=== PATIENT | male | born 1980 | race Caucasian/White ===

== ENCOUNTER 2017-05-29 19:09 | Emergency (ER) | payer BC, OTHER ==
--- NOTE | 2017-05-29 19:14 | UC ---
HPI Febrile Illness - HPI Summary HPI Summary: 36 YEAR OLD MALE PRESENTS WITH FEVER, CHILLS, AND SEVERE NECK PAIN. I WILL SEND HIM TO THE ER TO RULE OUT MENINGITIS. - History of Current Complaint Chief Complaint: UCGeneralIllness Time Seen by Provider: 05/29/17 19:13 - Allergy/Home Medications Allergies/Adverse Reactions: Allergies Allergy/AdvReac Type Severity Reaction Status Date / Time Sulfa Antibiotics Allergy Hives Verified 05/29/17 19:17 Home Medications: Home Medications Acetaminophen [Eq Acetaminophen] 650 mg PO 05/29/17 [History] Ibuprofen [Advil] 400 mg PO 05/29/17 [History] PMH/Surg Hx/FS Hx/Imm Hx Previously Healthy: Yes Review of Systems Constitutional: Fever, Chills, Fatigue Skin: Negative Eyes: Negative ENT: Negative Respiratory: Negative Cardiovascular: Negative Gastrointestinal: Negative Genitourinary: Negative Motor: Negative Neurovascular: Negative Musculoskeletal: Other: - NECK PAIN Neurological: Negative Psychological: Negative All Other Systems Reviewed And Are Negative: Yes Physical Exam Triage Information Reviewed: Yes Eye Exam: Normal ENT Exam: Normal ENT: Positive: Pharyngeal erythema, Nasal drainage Dental Exam: Normal Neck: Positive: Tenderness @ Respiratory: Positive: Rhonchi, Wheezing Cardiovascular Exam: Normal Abdominal Exam: Normal Musculoskeletal Exam: Normal Neurological Exam: Normal Psychological Exam: Normal Skin Exam: Normal Course/Dx - Diagnoses Clinic Provider Diagnoses: FEVER. CHILLS. NECK PAIN Discharge - Discharge Plan Condition: Stable Disposition: AGAINST MEDICAL ADVICE Patient Education Materials: Fever in Adults (ED), Cold Symptoms (ED) Referrals: No Primary Care Phys,NOPCP [Primary Care Provider] -
[2017-05-29 19:17] VITALS: BP 132/69
== END 2017-05-29 19:24 | disposition left against medical advice (07) ==
LOC: UCEAST 19:09
DX: R50.9 Fever, unspecified (principal); M54.2 Cervicalgia
CPT/HCPCS: 99202; G0463

== ENCOUNTER 2017-05-29 19:45 | Emergency (ER) | payer BC, OTHER ==
[2017-05-29 21:24] LABS: Hematocrit 40 % (42-52); Hemoglobin 13.4 g/dl (14.0-18.0); Mean Corpuscular HGB Conc 34 g/dl (31-36); Mean Corpuscular Hemoglobin 30 pg (27-31); Mean Corpuscular Volume 90 fL (80-94); Mean Platelet Volume 7 um3 (7.4-10.4); Red Blood Count 4.42 10^6/ul (4.0-5.4); Red Cell Distribution Width 14 % (10.5-15); White Blood Count 4.9 10^3/ul (3.5-10.8)
[2017-05-29 21:27] LABS: Urine Bilirubin Negative (Negative); Urine Glucose Negative (Negative); Urine Nitrite Negative (Negative)
[2017-05-29 21:39] LABS: BUN/Creatinine Ratio 11.5 (8-20); Calcium 9.1 mg/dL (8.6-10.3); Globulin 3.4 g/dL (2-4); Total Bilirubin 1.5 mg/dL (0.2-1.0); Total Protein 7.4 g/dL (6.4-8.9)
--- NOTE | 2017-05-29 23:44 | ED ---
Abdiel Moncada Alok, scribed for Brandon Jesus MD on 05/29/17 at 2307 . HPI Febrile Illness - HPI Summary HPI Summary: 36M presents to the ED for a fever/chills since 8 days ago. Pt states that his maximum fever was 102.5 F three days ago. Pt has been taking ibuprofen/tylenol every 4 hours to manage his symptoms. Pt also notes chest tightness, neck tightness, and myalgia. PMHx includes h/o PNA 3 months ago lasting 2 weeks. - History of Current Complaint Chief Complaint: EDFever Time Seen by Provider: 05/29/17 23:00 Hx Obtained From: Patient Onset/Duration: Started Days Ago, Atraumatic, Still Present Timing: Constant Initial Severity: Moderate Current Severity: Moderate Pain Intensity: 5 Pain Scale Used: 0-10 Numeric Aggravating Factors: Nothing Alleviating Factors: Nothing Associated Signs and Symptoms: Chills, Myalgia, Stiff Neck, Other: - chest tightness - Allergy/Home Medications Allergies/Adverse Reactions: Allergies Allergy/AdvReac Type Severity Reaction Status Date / Time Sulfa Antibiotics Allergy Hives Verified 05/29/17 19:17 PMH/Surg Hx/FS Hx/Imm Hx Respiratory History: Reports: Hx Pneumonia Infectious Disease History: No Infectious Disease History: Denies: Traveled Outside the [place] in Last 30 Days - Family History Known Family History: Negative: Hypertension - Social History Occupation: Employed Full-time Lives: With Family Alcohol Use: Occasionally Substance Use Type: Reports: None Smoking Status (MU): Never Smoked Tobacco Review of Systems Positive: Fever, Chills Positive: Chest Pain Positive: Myalgia, Other - neck pain All Other Systems Reviewed And Are Negative: Yes Physical Exam Triage Information Reviewed: Yes Vital Signs On Initial Exam: Initial Vitals Temp Resp Pulse Ox 101.1 F 18 99 05/29/17 19:55 05/29/17 19:55 05/29/17 19:55 Vital Signs Reviewed: Yes Appearance: Positive: Well-Appearing, No Pain Distress, Thin Skin: Positive: Warm Head/Face: Positive: Normal Head/Face Inspection Eyes: Positive: LEDIA ENT: Positive: Hearing grossly normal, Pharynx normal Neck: Positive: Supple Respiratory/Lung Sounds: Positive: Clear to Auscultation, Breath Sounds Present Cardiovascular: Positive: RRR Abdomen Description: Positive: Nontender, Soft Bowel Sounds: Positive: Present Musculoskeletal: Positive: Strength/ROM Intact Neurological: Positive: Alert, Oriented to Person Place, Time Psychiatric: Positive: Affect/Mood Appropriate - Jennifer Coma Scale Coma Scale Total: 15 Diagnostics - Vital Signs Vital Signs Temp Pulse Resp BP Pulse Ox 05/29/17 22:50 99 F 05/29/17 21:47 100.9 F 18 122/74 99 05/29/17 19:57 101.1 F 73 16 127/76 100 05/29/17 19:55 101.1 F 18 99 - Laboratory Lab Results: Lab Results 05/29/17 05/29/17 05/29/17 Range/Units 21:14 21:14 21:14 WBC 4.9 (3.5-10.8) 10^3/ul RBC 4.42 (4.0-5.4) 10^6/ul Hgb 13.4 L (14.0-18.0) g/dl Hct 40 L (42-52) % MCV 90 (80-94) fL MCH 30 (27-31) pg MCHC 34 (31-36) g/dl RDW 14 (10.5-15) % Plt Count 265 (150-450) 10^3/ul MPV 7 L (7.4-10.4) um3 Neut % (Auto) 55.2 (38-83) % Lymph % (Auto) 22.6 L (25-47) % Mckinley % (Auto) 19.9 H (1-9) % Eos % (Auto) 0.8 (0-6) % Baso % (Auto) 1.5 (0-2) % Absolute Neuts (auto) 2.7 (1.5-7.7) 10^3/ul Absolute Lymphs (auto) 1.1 (1.0-4.8) 10^3/ul Absolute Monos (auto) 1.0 H (0-0.8) 10^3/ul Absolute Eos (auto) 0 (0-0.6) 10^3/ul Absolute Basos (auto) 0.1 (0-0.2) 10^3/ul Absolute Nucleated RBC 0 10^3/ul Nucleated RBC % 0 Sodium 132 L (133-145) mmol/L Potassium 4.0 (3.5-5.0) mmol/L Chloride 99 L (101-111) mmol/L Carbon Dioxide 28 (22-32) mmol/L Anion Gap 5 (2-11) mmol/L BUN 9 (6-24) mg/dL Creatinine 0.78 (0.67-1.17) mg/dL Est GFR ( Amer) 144.0 (>60) Est GFR (Non-Af Amer) 112.0 (>60) BUN/Creatinine Ratio 11.5 (8-20) Glucose 106 H (70-100) mg/dL Calcium 9.1 (8.6-10.3) mg/dL Total Bilirubin 1.50 H (0.2-1.0) mg/dL AST 36 (13-39) U/L ALT 35 (7-52) U/L Alkaline Phosphatase 66 (34-104) U/L Total Protein 7.4 (6.4-8.9) g/dL Albumin 4.0 (3.2-5.2) g/dL Globulin 3.4 (2-4) g/dL Albumin/Globulin Ratio 1.2 (1-3) Urine Color Yellow Urine Appearance Clear Urine pH 7.0 (5-9) Ur Specific [place] 1.018 (1.010-1.030) Urine Protein Negative (Negative) Urine Ketones Negative (Negative) Urine Blood Negative (Negative) Urine Nitrate Negative (Negative) Urine Bilirubin Negative (Negative) Urine Urobilinogen Negative (Negative) Ur Leukocyte Esterase Negative (Negative) Urine Glucose Negative (Negative) Result Diagrams: 05/29/17 21:14 05/29/17 21:14 Lab Statement: Any lab studies that have been ordered have been reviewed, and results considered in the medical decision making process. - Radiology CXR Xray Interpretation: Positive (See Comments) - PNA Radiology Interpretation Completed By: ED Physician - Dr. Jesus Re-Evaluation - Re-Evaluation First Eval Change: Improved - results d/w pt Course/Dx - Diagnoses Provider Diagnoses: Pneumonia Discharge - Discharge Plan Condition: Improved Disposition: HOME Prescriptions: Azithromycin TAB* [Zithromax TAB (Z-RALPH) 250 mg #6 tabs] 250 mg PO DAILY #4 tab Patient Education Materials: Pneumonia (ED) Referrals: No Primary Care Phys,NOPCP [Primary Care Provider] - The documentation as recorded by the Abdiel krishnan Alok accurately reflects the service I personally performed and the decisions made by me, Brandon Jesus MD.
[2017-05-30] MEDS ORDERED: Azithromycin IV(*) 500 MG in NS 0.9% 250 ML* 250 ML IVPB ONE (00:48)
[2017-05-30 02:41] VITALS: BP 102/61
--- NOTE | 2017-05-30 07:48 | RAD ---
INDICATION: Fever and cough x8 days COMPARISON: None TECHNIQUE: PA and lateral views of the chest were obtained. FINDINGS: The heart and mediastinum are normal in size and contour. There is consolidation overlying the lateral mid-level right lung that is localized to the right middle lobe on the lateral view image. There is no evidence of large pleural effusion. Visualized bones are normal for the patient's age. There is no radiographic evidence of free air beneath the diaphragm IMPRESSION: RADIOGRAPHIC FINDINGS ARE MOST CONSISTENT WITH A RIGHT MIDDLE LOBE PNEUMONIA. FOLLOW-UP CHEST X-RAY AFTER AN APPROPRIATE COURSE OF THERAPY IS ADVISED TO ASCERTAIN RESOLUTION.
== END 2017-05-30 02:41 | disposition home or self-care (01) ==
LOC: ED 19:45
DX: J18.9 Pneumonia, unspecified organism (principal); R50.9 Fever, unspecified
CPT/HCPCS: 36415; 71020; 80053; 81003; 85025; 87502; 99283; J0456

== ENCOUNTER 2018-04-29 11:42 | Emergency (ER) | payer OTHER ==
[2018-04-29] MEDS ORDERED: Tetan/Diph/Pertus SYR(Tdap)* 0.5 ML SYR(BOOSTRIX) use SYR IM ONE (12:07)
[2018-04-29 12:10] VITALS: BP 128/73
--- NOTE | 2018-04-29 12:56 | UC ---
Janet Moncada Julia, scribed for Paul Batista MD on 04/29/18 at 1244 . Bite Injury/Animal HPI - HPI Summary HPI Summary: This patient is a 37 year old M presenting to Urgent care due to a dog bite to the right lower leg prior to arrival. He reports an open would. Pain is 1/10, as seen in triage note. He states while running with a friend, a dog got loose from the owners car and bit both him and his friend. He has received the contact information of the tech intern and is able to follow up with the tech intern. He reports the animal is UTD on vaccines. Last tetanus was over 5 years ago. Regular medications include Azithromycin three times weekly, for chronic bronchitis. He is from [place] and visiting family in [place] Owners contact information, as presented by the patient: Jah Bowie [address] [place] [address] Kimmy LUIS [id number] - History of Current Complaint Chief Complaint: UCBiteInjury Stated Complaint: DOG BITE Time Seen by Provider: 04/29/18 12:25 Hx Obtained From: Patient Pain Intensity: 1 Pain Scale Used: 0-10 Numeric Onset/Duration: Sudden Onset Type of Bite: Animal Has Animal Been Immunized?: Yes Associated Signs And Symptoms: Positive: Negative Animal Available for Observation: Yes - Allergies/Home Medications Allergies/Adverse Reactions: Allergies Allergy/AdvReac Type Severity Reaction Status Date / Time Sulfa (Sulfonamide Allergy Hives Verified 04/29/18 12:10 Antibiotics) Home Medications: Home Medications Azithromycin TAB* [Zithromax TAB (Z-RALPH) 250 mg #6 tabs] 250 mg PO DAILY [History Confirmed 04/29/18] PMH/Surg Hx/FS Hx/Imm Hx Previously Healthy: Yes Other Endocrine History: negative Other Cardiovascular History: negative Respiratory History: Bronchitis - chronic on azithromycin Other GI/ History: negative Other Neurological History: negative Other Psychological History: negative - Surgical History Surgical History: None - Family History Known Family History: Negative: Hypertension - Social History Alcohol Use: Weekly Substance Use Type: None Smoking Status (MU): Never Smoked Tobacco Review of Systems Constitutional: Negative Skin: Other - open bite wound to right lower leg Eyes: Negative ENT: Negative Respiratory: Negative Cardiovascular: Negative Gastrointestinal: Negative Genitourinary: Negative Motor: Negative Neurovascular: Negative Musculoskeletal: Other: - dog bite to right lower leg with open wound Neurological: Negative Psychological: Negative All Other Systems Reviewed And Are Negative: Yes Physical Exam - Summary Physical Exam Summary: Appearance: Well-Appearing, No Pain Distress, Well-Nourished Eyes: conjunctiva clear, no discharge ENT: Hearing grossly normal, no muffled/hoarse voice. Neck: Normal, Supple Respiratory/Lung Sounds: Lungs clear, Normal breath sounds, No respiratory distress, No accessory muscle use Cardiovascular: RRR, No murmur Abdomen: Nontender, Soft, no guarding, not distended Bowel Sounds: Present Musculoskeletal: bite yolette on right lower leg on the lateral aspect with no significant erythema or bleeding. No swelling or drainage noted. Neurological: Alert, muscle tone normal Psychiatric:Normal, age appropriate behavior Skin: Normal, Warm, Dry, Normal color Triage Information Reviewed: Yes Vital Signs: Initial Vital Signs Temp 97.7 F 04/29/18 12:04 Pulse 62 04/29/18 12:04 Resp 18 04/29/18 12:04 BP 128/73 04/29/18 12:04 Pulse Ox 100 04/29/18 12:04 Vital Signs Reviewed: Yes Bite Injury Course/Dx - Course Course Of Treatment: During the visit today, he was given a tetanus shot . . We discussed the findings and further plan. I will prescribe the medication to the pharmacy . Patient expressed understanding . - Differential Dx/Diagnosis Provider Diagnoses: Dog bite. Cellulitis Discharge - Sign-Out/Discharge Documenting (check all that apply): Discharge/Admit/Transfer - Discharge Plan Condition: Stable Disposition: HOME Prescriptions: Amoxicillin/Clavulanate TAB* [Augmentin TAB 875*] 875 mg PO BID 10 Days #20 tab Patient Education Materials: Animal Bite (ED) Referrals: No Primary Care Phys,NOPCP [Primary Care Provider] - 1 Week Additional Instructions: Start taking antibiotics as prescribed. It has been prescribed to the pharmacy . Follow up with your primary care doctor in 1 week. Plan to monitor the dog. Please keep contact info of the tech intern as he is in [place]. Return to Urgent care / ER if symptoms get worse. - Billing Disposition and Condition Condition: STABLE Disposition: Home The documentation as recorded by the Janet krishnan Julia accurately reflects the service I personally performed and the decisions made by me, Paul Batista MD.
== END 2018-04-29 12:50 | disposition home or self-care (01) ==
LOC: UCEAST 11:42
DX: S81.851A Open bite, right lower leg, initial encounter (principal); L03.115 Cellulitis of right lower limb; Z88.2 Allergy status to sulfonamides; W54.0XXA Bitten by dog, initial encounter; Y93.02 Activity, running; Y92.9 Unspecified place or not applicable
CPT/HCPCS: 90471; 90715; 99212; G0463